=== PATIENT | male | born 1945 | race African-American/Black ===

== ENCOUNTER 2017-03-31 16:38 | Emergency (ER) | payer BC ==
[~2017-03-31] VITALS: Ht 172.7 cm; Wt 135.2 kg
[~2017-03-31 16:38] MED LIST: ALLOPURINOL 30300 M1 PO; AVAPRO300 MG PO; AVELOX400 MG PO; BYETTA PEN 11 PENINJ SQ; DOXYCYCLINE 10100 MG PO; FUROSEMIDE 40 M40 M1 PO; GLEEVEC100 MG PO; GLUCOVANCE 5-51 EACH PO; NORCO 5-325 TA1 EACH PO; NORFLEX100 MG PO; PERCOCET 5-3251 EACH PO; POTASSIUM20 PO; PREDNISONE 20 M20 MG PO; PREDNISONE PO; PROBENECID-COL1 EACH PO; PROVENTIL HFA6.7 G1 INH; TESSALON PERLE100 MG PO; TRAVATAN Z2.5 ML OPHTHALMIC; TYLOX 5-500 CA1 EACH; VINCRISTINE IV; [UNRECOGNIZED DRUG - OTHER]; [UNRECOGNIZED DRUG - OTHER] PO
[2017-03-31 16:39] VITALS: BP 184/101
[2017-03-31] MEDS ORDERED: TRAMADOL 50 MG50 MG PO (17:29)
== END 2017-03-31 17:25 | disposition home or self-care (01) ==
LOC: ER 16:38
DX: S50.02XA Contusion of left elbow, initial encounter (principal); E11.9 Type 2 diabetes mellitus without complications; I10 Essential (primary) hypertension; Z85.6 Personal history of leukemia; Z92.21 Personal history of antineoplastic chemotherapy; Z88.1 Allergy status to other antibiotic agents; Z88.6 Allergy status to analgesic agent; Z91.030 Bee allergy status; W01.0XXA Fall on same level from slipping, tripping and stumbling without subsequent striking against object, initial encounter; Y93.H2 Activity, gardening and landscaping; Y92.096 Garden or yard of other non-institutional residence as the place of occurrence of the external cause; Y99.8 Other external cause status